=== PATIENT | female | born 1985 | race Caucasian/White ===

== ENCOUNTER 2017-07-18 09:18 | Emergency (ER) | payer MEDICAID ==
[2017-07-18 11:47] LABS: URINE BLOOD (Dip) POC Trace-lysed (NEGATIVE); URINE GLUCOSE (Dip) POC Negative (NEGATIVE); URINE KETONES (Dip) POC Negative (NEGATIVE); URINE LEUKOCYTE EST (Dip) POC Trace (NEGATIVE); URINE NITRITE (Dip) POC Negative (NEGATIVE); URINE TOTAL PROTEIN POC Negative (NEGATIVE)
[2017-07-18 11:47] LABS: URINE PH (Dip) POC 5.5 (5.0-8.5)
== END 2017-07-18 13:05 | disposition home or self-care (01) ==
LOC: FTE 09:18
DX: R51 Headache (principal); R07.9 Chest pain, unspecified; G47.00 Insomnia, unspecified
CPT/HCPCS: 81003; 82962; 93005; 99283-25